=== PATIENT | female | born 1990 | race Two or more races ===

== ENCOUNTER 2021-03-29 10:01 | Outpatient (CLI) | payer OTHER | END 2021-03-29 14:59 | disposition home or self-care (01) | LOC: OBS/DEL 10:01 | PROVIDERS: ATTEND Obstetrics & Gynecology | DX: O26.892 Other specified pregnancy related conditions, second trimester (principal); R10.2 Pelvic and perineal pain; Z3A.22 22 weeks gestation of pregnancy ==

== ENCOUNTER 2021-06-05 13:33 | Outpatient (CLI) | payer OTHER | END 2021-06-05 14:46 | disposition home or self-care (01) | LOC: NST 13:33 | PROVIDERS: ATTEND Obstetrics & Gynecology Maternal & Fetal Medicine | DX: Z34.83 Encounter for supervision of other normal pregnancy, third trimester (principal) ==

== ENCOUNTER 2021-07-02 12:54 | Outpatient (CLI) | payer OTHER | END 2021-07-02 13:14 | disposition home or self-care (01) | LOC: NST 12:54 | PROVIDERS: ATTEND Obstetrics & Gynecology Maternal & Fetal Medicine | DX: Z34.83 Encounter for supervision of other normal pregnancy, third trimester (principal) ==

== ENCOUNTER 2021-07-21 08:00 | Inpatient (IN) | payer OTHER ==
[~2021-07-21] VITALS: Ht 165.1 cm; Wt 2.7 kg
[2021-07-21] MEDS ORDERED: ACTEMRA162 MG/0.9 (10:25)
[2021-07-21] MEDS ORDERED: METROGEL-VAGINA70 GM VAG (10:26)
[2021-07-21] MEDS ORDERED: PRENATABS RX T1 EACH PO (10:26)
[2021-07-26] MEDS ORDERED: KETO10TA2 PO (10:16)
== END 2021-07-26 13:12 | disposition home or self-care (01) | DRG 788 ==
LOC: SURH 07-24 08:00 → SURG-SUITE 07-24 10:34 → O/R 07-24 10:34 → SURG-SUITE 07-24 16:59
PROVIDERS: ADMIT Obstetrics & Gynecology; ATTEND Obstetrics & Gynecology
PROC: 4A1HXFZ Monitoring of Products of Conception, Cardiac Rhythm, External Approach (ICD-10-PCS; 2021-07-24)
PROC: 10D00Z1 Extraction of Products of Conception, Low, Open Approach (ICD-10-PCS; principal; 2021-07-24 10:00)
DX: O82 Encounter for cesarean delivery without indication (principal); O99.892 Other specified diseases and conditions complicating childbirth; M08.2 Juvenile rheumatoid arthritis with systemic onset; O26.893 Other specified pregnancy related conditions, third trimester; Z67.91 Unspecified blood type, Rh negative; Z37.0 Single live birth; Z3A.39 39 weeks gestation of pregnancy

== ENCOUNTER 2025-04-09 22:44 | Outpatient (CLI) | payer OTHER ==
[~2025-04-09] VITALS: Ht 165.1 cm; Wt 64.0 kg
[2025-04-09 22:15] VITALS: BP 113/72
[~2025-04-09 22:44] MED LIST: ACTEMRA162 MG/0.9; KETO10TA2 PO; METROGEL-VAGINA70 GM VAG; PRENATABS RX T1 EACH PO
[2025-04-09] MEDS ORDERED: MORPHINE SULFATE 4 MG/ML CARTRIDGE IV PRN (23:00)
[2025-04-09] MEDS ORDERED: RINGERS SOLUTION,LACTATED 1,000 ML IV SCH (23:00)
[2025-04-09 23:13] LABS: BASO % 0.4 % (0.1-1.2); EOS # 0.06 (0.04-0.54); EOS % 0.7 % (0.7-7.0); LYMPH # 1.40 (1.18-3.74); LYMPH % 17.3 % (19.3-53.1); MEAN PLATELET VOLUME 9.50 fl (9.4-12.4); MONO # 0.63 (0.24-0.82); MONO % 7.8 % (4.7-12.5); NEUT # 5.84 (1.56-6.13); NEUT % 72.4 % (34.0-71.1); RED CELL DISTRIBUTION WIDTH 12.4 % (11.6-14.4)
[2025-04-09 23:19] VITALS: BP 95/59
[2025-04-09 23:32] LABS: INR 0.94
[2025-04-09 23:34] LABS: URINE APPEARANCE Clear; URINE BILIRRUBIN Negative (NEGATIVE); URINE BLOOD Negative; URINE COLOR Yellow; URINE GLUCOSE Negative (NEGATIVE); URINE KETONE Negative (NEGATIVE); URINE LEUKOCYTE Moderate; URINE NITRATE Negative; URINE PROTEIN Negative (NEGATIVE); URINE UROBILINOGEN 1.0 E.U./dl
[2025-04-09 23:37] LABS: URINE BACTERIA 3637.2 uL (0.0-1933); URINE EPITHELIAL CELLS 22.7 uL (0.0-38.8); URINE RBC 14.9 uL (0.0-20.8); URINE WBC 140.1 uL (0.0-23.2)
[2025-04-09 23:44] LABS: URINE CAST 0.14 uL (0.0-1.40)
[2025-04-10 02:51] VITALS: BP 92/59
[2025-04-10 07:51] VITALS: BP 99/63
[2025-04-10 08:17] VITALS: BP 99/63
== END 2025-04-10 08:56 | disposition home or self-care (01) ==
LOC: OBS/DEL 22:44
PROVIDERS: ATTEND Obstetrics & Gynecology Gynecology
DX: O26.893 Other specified pregnancy related conditions, third trimester (principal); Z3A.35 35 weeks gestation of pregnancy

== ENCOUNTER 2025-04-26 08:55 | Inpatient (IN) | payer OTHER ==
[~2025-04-26] VITALS: Ht 165.1 cm; Wt 2.7 kg
[2025-04-26 10:22] LABS: BASO % 0.8 % (0.1-1.2); EOS # 0.02 (0.04-0.54); EOS % 0.3 % (0.7-7.0); LYMPH # 0.87 (1.18-3.74); LYMPH % 13.7 % (19.3-53.1); MEAN PLATELET VOLUME 9.70 fl (9.4-12.4); MONO # 0.49 (0.24-0.82); MONO % 7.7 % (4.7-12.5); NEUT # 4.79 (1.56-6.13); NEUT % 75.8 % (34.0-71.1); RED CELL DISTRIBUTION WIDTH 12.8 % (11.6-14.4)
[2025-04-26 10:47] LABS: INR < 0.93
[2025-04-26 11:17] LABS: ALT/SGPT 17.0 U/L (12-78); AST/SGOT 15.0 U/L (15-37); BILIRUBIN TOTAL 0.31 mg/dL (0.3-1.2); BUN CREA RATIO 16.0 (7.0-25.0); CREATININE SERUM 0.43 mg/dL (0.55-1.02); GFR 168.08; GLOBULINA 3.9 G/DL (2.4-3.5); GLUCOSE FASTING 61.0 mg/dL (65-100); OSMOLALITY SERUM 272.0 MOSM/KG (275-295)
[2025-05-01 09:03] VITALS: BP 107/73
[2025-05-01] MEDS ORDERED: RINGERS SOLUTION,LACTATED 1,000 ML IV SCH (10:15)
[2025-05-01] MEDS ORDERED: CEFAZOLIN SODIUM 1,000 MG VIAL IV SCH (10:45)
[2025-05-01] MEDS ORDERED: CITRIC ACID/SODIUM CITRATE 30 ML BLIST.PACK PO SCH (10:45)
[2025-05-01] MEDS ORDERED: OXYTOCIN 10 UNITS/ML VIAL ONE (11:08)
[2025-05-01] MEDS ORDERED: ERYTHROMYCIN BASE OPHT 1GM EACH TUBE OP ONE (11:09)
[2025-05-01] MEDS ORDERED: ACETAMINOPHEN 500 MG GEL..CAP PO SCH (12:26)
[2025-05-01] MEDS ORDERED: OXYTOCIN 1,000 ML IV ONE (12:30)
[2025-05-01] MEDS ORDERED: GABAPENTIN 300 MG CAPSULE PO SCH (17:00)
[2025-05-01] MEDS ORDERED: KETOROLAC TROMETHAMINE 30 MG VIAL IV SCH (18:00)
[2025-05-01 19:00] VITALS: BP 106/63
[2025-05-02 03:02] VITALS: BP 100/64; O2SAT 97
[2025-05-02 07:38] LABS: BASO % 0.3 % (0.1-1.2); EOS # 0.04 (0.04-0.54); EOS % 0.4 % (0.7-7.0); LYMPH # 1.07 (1.18-3.74); LYMPH % 10.9 % (19.3-53.1); MEAN PLATELET VOLUME 9.70 fl (9.4-12.4); MONO # 0.62 (0.24-0.82); MONO % 6.3 % (4.7-12.5); NEUT # 8.00 (1.56-6.13); NEUT % 81.4 % (34.0-71.1); RED CELL DISTRIBUTION WIDTH 12.5 % (11.6-14.4)
[2025-05-02] MEDS ORDERED: FF) RHO(D) IMMUNE GLOBULIN (POM) IM NR (09:00)
[2025-05-02] MEDS ORDERED: PNV,CALCIUM 72/IRON/FOLIC ACID 1 TAB TABLET PO SCH (09:00)
[2025-05-02] MEDS ORDERED: SIMETHICONE 125 MG CAPSULE PO SCH (09:00)
[2025-05-02] MEDS ORDERED: DOCUSATE SODIUM 100MG CAP PO SCH (09:00)
[2025-05-02 09:17] VITALS: BP 94/61
[2025-05-02] MEDS ORDERED: KETOROLAC TROMETHAMINE 10 MG TABLET PO PRN (09:30)
[2025-05-02 16:53] VITALS: BP 94/62
[2025-05-03 02:33] VITALS: BP 100/63; O2SAT 97
[2025-05-03] MEDS ORDERED: OxyCODONE HCL 5 MG TABLET (ROXICODONE) PO PRN (06:00)
[2025-05-03] MEDS ORDERED: FF) RHO(D) IMMUNE GLOBULIN (POM) IM NR (07:00)
[2025-05-03 08:00] VITALS: BP 92/66
== END 2025-05-03 15:16 | disposition home or self-care (01) | DRG 788 ==
LOC: OB/GYN 05-01 07:00 → LDR 05-01 09:11 → OB/GYN 05-01 09:45 → O/R 05-01 13:53 → OB/GYN 05-01 14:29
PROVIDERS: Obstetrics & Gynecology Maternal & Fetal Medicine; ADMIT Obstetrics & Gynecology Gynecology; ATTEND Obstetrics & Gynecology Gynecology
PROC: 4A1HXCZ Monitoring of Products of Conception, Cardiac Rate, External Approach (ICD-10-PCS; 2025-05-01)
PROC: 10D00Z1 Extraction of Products of Conception, Low, Open Approach (ICD-10-PCS; principal; 2025-05-01 07:00)
DX: O34.211 Maternal care for low transverse scar from previous cesarean delivery (principal); Z3A.38 38 weeks gestation of pregnancy; Z37.0 Single live birth

== ENCOUNTER 2025-04-26 13:10 | Outpatient (CLI) | payer OTHER | END 2025-04-26 14:34 | disposition home or self-care (01) | LOC: NST 13:10 | PROVIDERS: ATTEND Obstetrics & Gynecology Gynecology | DX: Z34.83 Encounter for supervision of other normal pregnancy, third trimester (principal) ==